=== PATIENT | female | born 1960 | race Caucasian/White ===

== ENCOUNTER → 2017-03-09 | Outpatient (CLI) | payer OTHER | LOC: CIMAGING 10:48 | DX: Z12.31 Encounter for screening mammogram for malignant neoplasm of breast (principal) | CPT/HCPCS: G0202 ==

== ENCOUNTER 2017-12-15 16:13 | Emergency (ER) | payer OTHER ==
--- NOTE | 2017-12-15 16:33 | CPEKG ---
Heart Rate: 67 RR Interval: 896 P-R Interval: 124 QRSD Interval: 84 QT Interval: 412 QTC Interval: 435 P [place]: 47 QRS [place]: 46 T Wave [place]: 27 EKG Severity - NORMAL ECG - EKG Impression: SINUS RHYTHM Electronically Signed By: Artemio Andrea 15-Dec-2017 16:54:43
[2017-12-15] MEDS ORDERED: ASPIRIN 81 MG CHEWABLE TAB PO ONE (16:50)
--- NOTE | 2017-12-15 16:54 | EDPHY ---
H & P Stated Complaint: IRREG HR LAST NIGHT/CP TODAY Time Seen by Provider: 12/15/17 16:46 HPI/ROS: CHIEF COMPLAINT: Chest pain HISTORY OF PRESENT ILLNESS: Patient is a 57-year-old healthy female with no significant past medical history who comes to the emergency department complaining of intermittent chest pressure today over her left breast that persists for 5 min at a time. It is been all day today. She also complains that last night she felt like her heart was beating intensely and possibly regularly. She did not take her pulse. She denies any shortness of breath. No diaphoresis, no nausea vomiting. She does feel lightheaded today as well but it is not necessarily correlate with her chest pressure. No diaphoresis. No recent travel. No smoking. No recent trauma or procedures. REVIEW OF SYSTEMS: Constitutional: denies: chills, fever, recent illness, recent injury EENTM: denies: blurred vision, double vision, nose congestion Respiratory: denies: cough, shortness of breath Cardiac: See HPI Gastrointestinal/Abdominal: denies: abdominal pain, diarrhea, nausea, vomiting, blood streaked stools Genitourinary: denies: dysuria, frequency, hematuria, pain Musculoskeletal: denies: joint pain, muscle pain Skin: denies: lesions, rash, jaundice, bruising Neurological: denies: headache, numbness, paresthesia, tingling, dizziness, weakness Hematologic/Lymphatic: denies: blood clots, easy bleeding, easy bruising Immunologic/allergic: denies: HIV/AIDS, transplant EXAM: GENERAL: Well-appearing, well-nourished and in no acute distress. HEAD: Atraumatic, normocephalic. EYES: Pupils equal round and reactive to light, extraocular movements intact, sclera anicteric, conjunctiva are normal. ENT: TMs normal, nares patent, oropharynx clear without exudates. Moist mucous membranes. NECK: Normal range of motion, supple without lymphadenopathy or JVD. LUNGS: Breath sounds clear to auscultation bilaterally and equal. No wheezes rales or rhonchi. HEART: Regular rate and rhythm without murmurs, rubs or gallops. ABDOMEN: Soft, nontender, normoactive bowel sounds. No guarding, no rebound. No masses appreciated. BACK: No CVA tenderness, no spinal tenderness, step-offs or deformities EXTREMITIES: Normal range of motion, no pitting or edema. No clubbing or cyanosis. NEUROLOGICAL: Cranial nerves II through XII grossly intact. Normal speech, normal gait. 5/5 strength, normal movement in all extremities, normal sensation PSYCH: Normal mood, normal affect. SKIN: Warm, dry, normal turgor, no visible rashes or lesions. Source: Patient, Family Exam Limitations: No limitations - Personal History Current Tetanus/Diphtheria Vaccine: No - Medical/Surgical History Hx Asthma: Yes Hx Chronic Respiratory Disease: No Hx Diabetes: No Hx Cardiac Disease: No Hx Renal Disease: No Hx Cirrhosis: No Hx Alcoholism: No Hx HIV/AIDS: No Hx Splenectomy or Spleen Trauma: No Other PMH: MIGRAINES/EXERCISE INDUCED ASTHMA - Family History Significant Family History: No pertinent family hx - Social History Smoking Status: Never smoked Alcohol Use: Sober Drug Use: None Constitutional: Initial Vital Signs Temperature (C) 36.8 C 12/15/17 16:16 Heart Rate 78 12/15/17 16:16 Respiratory Rate 18 12/15/17 16:16 Blood Pressure 151/88 H 12/15/17 16:16 O2 Sat (%) 94 12/15/17 16:16 O2 Delivery Mode Room Air Allergies/Adverse Reactions: No Known Allergies Allergy (Verified 12/15/17 16:16) Home Medications: Medication Instructions Recorded Famotidine [Pepcid] 40 mg PO HS #30 tablet 12/15/17 Medical Decision Making - Diagnostics EKG Interpretation: An EKG obtained and was read and documented in trace view. Please see trace view for full reading and report. Sinus rhythm, no acute ischemic changes Imaging: Discussed imaging studies w/ on call Radiologist ED Course/Re-evaluation: We discussed the lab and imaging results which are reassuring considering the duration of her symptoms. She is reassured and declines further workup or testing. She declines repeat troponin or observation. She states that she thinks it is heartburn because she has had this before. I will give her a GI cocktail and prescribe her Pepcid and have her follow up with GI. We also discussed indications for returning to the emergency department. Differential Diagnosis: Partial list of the Differential diagnosis considered include but were not limited to; peptic ulcer disease, gastritis, acute coronary disease and although unlikely based on the history and physical exam, I also considered dissection, PE, pneumonia. I discussed these differential diagnoses and the plan with the patient as well as the usual and expected course. The patient understands that the diagnosis is provisional and that in medicine we are not always correct and that further workup is often warranted. Usual and customary warnings were given. All of the patient's questions were answered. The patient was instructed to return to the emergency department should the symptoms at all worsen or return, otherwise to followup with the physician as we discussed. - Data Points Laboratory Results: Laboratory Results 12/15/17 16:30 12/15/17 16:30 Medications Given: Discontinued Medications Al Hydroxide/Mg Hydroxide (Maalox Susp) 30 ml PO ONCE ONE Stop: 12/15/17 18:18 Last Admin: 12/15/17 18:46 Dose: 30 ml Aspirin (Aspirin) 324 mg PO EDNOW ONE Stop: 12/15/17 16:51 Last Admin: 12/15/17 17:30 Dose: 324 mg Hyoscyamine Sulfate (Levsin, Hyomax-Sl) 0.25 mg PO ONCE ONE Stop: 12/15/17 18:18 Last Admin: 12/15/17 18:46 Dose: 0.25 mg Lidocaine (Lidocaine 2% Viscous) 15 ml PO ONCE ONE Stop: 12/15/17 18:18 Last Admin: 12/15/17 18:46 Dose: 15 ml Departure - Departure Disposition: Home, Routine, Self-Care Clinical Impression: Chest pain Qualifiers: Chest pain type: unspecified Qualified Code(s): R07.9 - Chest pain, unspecified Condition: Fair Instructions: Chest Pain (ED) Referrals: Joan Dyer MD [Primary Care Provider] - 1-2 days without fail Prescriptions: Famotidine [Pepcid] 40 mg PO HS #30 tablet
[2017-12-15 17:04] LABS: PLATELET COUNT 198 10^3/uL (150-400)
[2017-12-15 17:36] LABS: INR 0.88 (0.83-1.16); PROTIME(PATIENT) 12.2 SEC (12.0-15.0)
[2017-12-15] MEDS ORDERED: HYOSCYAMINE SULFATE 0.125 MG TAB PO ONE (18:17)
[2017-12-15] MEDS ORDERED: LIDOCAINE 2% VISCOUS 15 ML UDCUP PO ONE (18:17)
[2017-12-15] MEDS ORDERED: MAG HYDROX/AL HYDROX/SIMETH 30 ML UDCUP PO ONE (18:17)
[2017-12-15 18:55] VITALS: BP 102/78; PULSE 72; RESP 16; TEMP 98.4; O2SAT 96
== END 2017-12-15 18:53 | disposition home or self-care (01) ==
DX: R07.9 Chest pain, unspecified (principal); J45.909 Unspecified asthma, uncomplicated